=== PATIENT | female | born 1985 | race Caucasian/White ===

== ENCOUNTER 2017-06-12 10:05 | Day surgery (SDC) | payer BC, OTHER ==
[~2017-06-12] VITALS: Ht 157.5 cm; Wt 97.3 kg
[~2017-06-12 10:05] MED LIST: CEFAZOLIN 1,000 MG ONE; FENTANYL PF 100 MCG/2ML ONE; MIDAZOLAM 1 MG/ML, 2ML ONE; PROPOFOL 10 MG/ML, 20ML ONE; ROCURONIUM 10MG/ML,5ML ONE; SUCCINYLCHOLINE 20 MG/ML, 10ML ONE
[2017-06-12] MEDS ORDERED: BUPIVACAINE/PF 0.25% ONE (10:18)
[2017-06-12] MEDS ORDERED: THROMBIN 5,000 UNIT VIAL TP ONE (10:18)
[2017-06-12] MEDS ORDERED: EPINEPHRINE 1 MG/ML, 1ML ONE (10:19)
[2017-06-12] MEDS ORDERED: SILVER NITRATE STICK TP ONE (10:19)
[2017-06-12] MEDS ORDERED: LACTATED RINGERS 1,000 ML IV SCH ×3 (10:27→10:29)
[2017-06-12] MEDS ORDERED: LIDOCAINE 1%, 2ML ONE (10:27)
[2017-06-12 10:29] VITALS: BP 138/95
[2017-06-12] MEDS ORDERED: LIDOCAINE 1%, 2ML SQ PRN (10:30)
[2017-06-12] MEDS ORDERED: SCOPOLAMINE PATCH, 1MG PATCH.TD72 TD ONE ×2 (10:33→11:00)
[2017-06-12] MEDS ORDERED: ONDANSETRON 2MG/ML, 2ML ONE (10:47)
[2017-06-12] MEDS ORDERED: OMEP20TA62 PO (10:48)
[2017-06-12] MEDS ORDERED: HYDROmorphone 1 MG/ML, 1ML IV PRN (11:00)
[2017-06-12] MEDS ORDERED: MEPERIDINE/PF 25MG/0.5ML IVPush PRN (11:00)
[2017-06-12] MEDS ORDERED: PROMETHAZINE 25 MG/ML, 1ML IV PRN (11:00)
[2017-06-12] MEDS ORDERED: ACETAMINOPHEN 325 MG TABLET PO PRN (11:00)
[2017-06-12] MEDS ORDERED: ONDANSETRON 2MG/ML, 2ML IVPush PRN (11:00)
[2017-06-12] MEDS ORDERED: OXYcodone 5 MG/5 ML ORAL.SOL UDC PO PRN (11:00)
[2017-06-12 11:13] LABS: HEMATOCRIT 43.8 % (34.6-47.8); HEMOGLOBIN 14.8 g/dL (11.7-16.4); WHITE BLOOD COUNT 6.9 x10^3/uL (3.4-10)
[2017-06-12] MEDS ORDERED: GLYCOPYRROLATE 0.4 MG/2 ML, 2ML ONE (11:37)
[2017-06-12] MEDS ORDERED: NEOSTIGMINE 1 MG/ML, 10ML ONE (11:37)
[2017-06-12] MEDS ORDERED: EPINEPHRINE 1 MG/ML, 1ML INFIL ONE (11:45)
[2017-06-12] MEDS ORDERED: BUPIVACAINE/PF 0.25% INFIL ONE (11:45)
[2017-06-12] MEDS ORDERED: KETOROLAC 30 MG/1 ML ONE (11:54)
[2017-06-12] MEDS ORDERED: PROMETHAZINE 25 MG/ML, 1ML ONE (12:07)
[2017-06-12] MEDS ORDERED: OXYcodone 5 MG/5 ML ORAL.SOL UDC ONE (12:19)
[2017-06-12] MEDS ORDERED: ACETAMINOPHEN 650 MG/20.3 ML UDC ONE (12:19)
[2017-06-12] MEDS ORDERED: FENTANYL PF 100 MCG/2ML ONE (12:19)
[2017-06-12] MEDS ORDERED: ACETAMINOPHEN 325 MG TABLET ONE (12:20)
[2017-06-12] MEDS: FENTANYL PF 100 MCG/2ML IV PRN ×2 (12:25→12:41)
[2017-06-12 12:29] VITALS: BP 111/73
[2017-06-12] MEDS ORDERED: MEPERIDINE/PF 25MG/0.5ML ONE (12:46)
[2017-06-12] MEDS ORDERED: DEXAMETHASONE 4 MG/ML, 1ML ONE (16:26)
== END 2017-06-12 13:38 ==
LOC: OUT 10:05
PROVIDERS: ATTEND Obstetrics & Gynecology
DX: O00.102 Left tubal pregnancy without intrauterine pregnancy (principal); J45.909 Unspecified asthma, uncomplicated; G43.909 Migraine, unspecified, not intractable, without status migrainosus
CPT/HCPCS: 36415; 59151; 84702; 85025; 86850; 86900; 86923; 88302; J0171; J0330; J0690; J1100; J1885; J2175; J2250; J2405; J2550; J2704; J2710; J2790; J3010; J3490

== ENCOUNTER 2019-02-13 08:46 | Outpatient (CLI) | payer OTHER ==
[~2019-02-13] VITALS: Ht 157.5 cm; Wt 67.0 kg
[~2019-02-13 08:46] MED LIST changes: -CEFAZOLIN 1,000 MG ONE; -FENTANYL PF 100 MCG/2ML ONE; -MIDAZOLAM 1 MG/ML, 2ML ONE; +OMEP20TA62 PO; -PROPOFOL 10 MG/ML, 20ML ONE; -ROCURONIUM 10MG/ML,5ML ONE; -SUCCINYLCHOLINE 20 MG/ML, 10ML ONE
[2019-02-13] MEDS ORDERED: URSO300C27 PO (08:56)
[2019-02-13] MEDS ORDERED: PNV11TAB PO (08:56)
[2019-02-13 08:59] VITALS: BP 125/67
== END 2019-02-13 10:45 | disposition home or self-care (01) ==
LOC: LDOP 08:46
PROVIDERS: ATTEND Obstetrics & Gynecology
DX: O36.8130 Decreased fetal movements, third trimester, not applicable or unspecified (principal); Z3A.36 36 weeks gestation of pregnancy; Z88.0 Allergy status to penicillin
CPT/HCPCS: 59025; 76819; 99201; G0463

== ENCOUNTER 2019-02-17 05:52 | Inpatient (IN) | payer OTHER ==
[~2019-02-17] VITALS: Ht 157.5 cm; Wt 67.2 kg
[~2019-02-17 05:52] MED LIST changes: +PNV11TAB PO; +URSO300C27 PO
[2019-02-17] MEDS ORDERED: OXYTOCIN 30U/ 0.9% NaCL 500ML 500 ML IV ONE (05:53)
[2019-02-17] MEDS ORDERED: OXYTOCIN 30U/ 0.9% NaCL 500ML 500 ML IV PRN (05:53)
[2019-02-17] MEDS ORDERED: FENTANYL PF 100 MCG/2ML IVPush PRN (06:00)
[2019-02-17] MEDS ORDERED: FENTANYL PF 100 MCG/2ML IV PRN (06:00)
[2019-02-17] MEDS ORDERED: ONDANSETRON 2MG/ML, 2ML IVPush PRN (06:00)
[2019-02-17 06:03] VITALS: BP 131/82
[2019-02-17 06:23] LABS: BASOPHILS # (AUTO) 0.02 x10^3/uL (0-0.1); BASOPHILS % (AUTO) 0 % (0-1); EOSINOPHILS # (AUTO) 0.05 x10^3/uL (0-0.4); EOSINOPHILS % (AUTO) 1 % (1-7); LYMPHOCYTES # (AUTO) 1.54 x10^3/uL (1-3.4); LYMPHOCYTES % (AUTO) 16 % (22-44); MD NO; MEAN CORPUSCULAR HEMOGLOBIN 25.8 pg (27.0-34.8); MEAN CORPUSCULAR HGB CONC 32.7 g/dL (32.4-35.8); MEAN CORPUSCULAR VOLUME 79.1 fL (80-100); MEAN PLATELET VOLUME 9.5 fL (7.4-10.4); MONOCYTES # (AUTO) 0.83 x10^3/uL (0.2-0.8); MONOCYTES % (AUTO) 9 % (2-9); NEUTROPHILS # (AUTO) 7.07 x10^3/uL (1.8-6.8); NEUTROPHILS % (AUTO) 74 % (42-75); PLATELET COUNT 214 x10^3/uL (130-400); RED CELL DISTRIBUTION WIDTH 15.2 % (9.6-15.2)
[2019-02-17] MEDS: LACTATED RINGERS 1,000 ML IV SCH ×3 (06:24→12:32)
[2019-02-17] MEDS ORDERED: MISOPROSTOL 200 MCG TABLET ONE ×2 (06:28→15:34)
[2019-02-17] MEDS ORDERED: OXYTOCIN 30U/ 0.9% NaCL 500ML 500 ML ONE ×2 (06:28→15:51)
[2019-02-17] MEDS ORDERED: LIDOCAINE 1%, 20ML ONE (06:28)
[2019-02-17 06:34] LABS: INTERNATIONAL NORMALIZED RATIO 0.88 (0.93-1.1); PROTHROMBIN TIME 9.3 Seconds (9.6-11.5)
[2019-02-17] MEDS ORDERED: FENTANYL/BUPIV./NS/PF 250 ML EPIDCONT SCH (06:52)
[2019-02-17 09:13] LABS: ALANINE AMINOTRANSFERASE 17 U/L (12-78); ALBUMIN 2.6 g/dL (3.4-5.0); ANION GAP 11 mmol/L (5-15); CALCIUM 9.1 mg/dL (8.5-10.1); CHLORIDE 107 mmol/L (98-107); CREATININE 0.72 mg/dL (0.55-1.02)
[2019-02-17 09:15] LABS: ALKALINE PHOSPHATASE 248 U/L (45-117); BILIRUBIN,TOTAL 0.4 mg/dL (0.2-1.0); TOTAL PROTEIN 6.1 g/dL (6.4-8.2)
[2019-02-17] MEDS ORDERED: FENTANYL PF 100 MCG/2ML ONE (11:23)
[2019-02-17] MEDS ORDERED: BUPIVACAINE 0.25% ONE ×2 (11:23→11:30)
[2019-02-17] MEDS ORDERED: LIDOCAINE/PF 1.5-EPI 1:200K, 30 ML ONE (11:30)
[2019-02-17] MEDS ORDERED: FENTANYL/BUPIV./NS/PF 250 ML EPIDCONT ONE (11:30)
[2019-02-17] MEDS ORDERED: ONDANSETRON 2MG/ML, 2ML ONE ×2 (12:03→17:51)
[2019-02-17] MEDS ORDERED: MISOPROSTOL 200 MCG TABLET PR PRN ×2 (16:30→17:00)
[2019-02-17] MEDS ORDERED: CALCIUM CARBONATE 500 MG TAB.CHEW PO PRN ×2 (16:30→17:00)
[2019-02-17] MEDS ORDERED: DOCUSATE 100 MG CAPSULE PO PRN ×2 (16:30→17:00)
[2019-02-17] MEDS ORDERED: ONDANSETRON 2MG/ML, 2ML IV PRN ×3 (16:30→18:00)
[2019-02-17] MEDS ORDERED: BISACODYL 10 MG SUPP PR PRN ×2 (16:30→17:00)
[2019-02-17] MEDS ORDERED: ACETAMINOPHEN 325 MG TABLET PO PRN ×4 (16:30→17:00)
[2019-02-17] MEDS ORDERED: HYDROcodone/APAP 5/325 TABLET PO PRN ×2 (16:30)
[2019-02-17] MEDS ORDERED: IBUPROFEN 600 MG TABLET ONE (16:47)
[2019-02-17] MEDS ORDERED: HYDROcodone/APAP 5/325 TABLET ONE (16:47)
[2019-02-17] MEDS: IBUPROFEN 600 MG TABLET PO PRN ×2 (16:50→23:00)
[2019-02-17] MEDS: OXYTOCIN 30U/ 0.9% NaCL 500ML 500 ML IV SCH ×5 (16:53→23:51)
[2019-02-17] MEDS ORDERED: METHYLERGONOVINE 0.2 MG/ML IM ONE (16:58)
[2019-02-17] MEDS ORDERED: MAGNESIUM HYDROXIDE 8%, 30ML UDC PO PRN (17:00)
[2019-02-17] MEDS ORDERED: METOCLOPRAMIDE 5 MG/ML, 2ML IV PRN (17:00)
[2019-02-17] MEDS ORDERED: IBUPROFEN 600 MG TABLET PO PRN (17:00)
[2019-02-17] MEDS ORDERED: CARBOPROST TROMETHAMINE 250 MCG/ML, 1ML IM PRN (17:00)
[2019-02-17] MEDS ORDERED: OXYcodone/APAP 5/325MG TABLET PO PRN (17:00)
[2019-02-17] MEDS ORDERED: GLYCERIN ADULT SUPP PR PRN (17:00)
[2019-02-17] MEDS ORDERED: MEASLES,MUMPS&RUBELLA VACC/PF 0.5 ML SQ-VACC PRN (17:00)
[2019-02-17] MEDS ORDERED: METHYLERGONOVINE 0.2 MG/ML IM PRN (17:00)
[2019-02-17] MEDS ORDERED: RHOGAM FROM BLOOD BANK 1 NOTE EA IM/IV ONE (17:00)
[2019-02-17] MEDS ORDERED: DIPH,PERTUSS(ACELL),TET VAC/PF NC IM-VACC PRN (17:00)
[2019-02-17 18:30] VITALS: BP 118/78
[2019-02-17 19:30] VITALS: BP 115/81
[2019-02-17 23:17] VITALS: BP 110/76
[2019-02-18] MEDS: OXYcodone/APAP 5/325MG TABLET PO PRN ×3 (00:28→16:43)
[2019-02-18 00:58] LABS: BASOPHILS # (AUTO) 0.02 x10^3/uL (0-0.1); BASOPHILS % (AUTO) 0 % (0-1); EOSINOPHILS # (AUTO) 0.03 x10^3/uL (0-0.4); EOSINOPHILS % (AUTO) 0 % (1-7); LYMPHOCYTES # (AUTO) 1.52 x10^3/uL (1-3.4); LYMPHOCYTES % (AUTO) 12 % (22-44); MD NO; MEAN CORPUSCULAR HEMOGLOBIN 26.3 pg (27.0-34.8); MEAN CORPUSCULAR HGB CONC 32.7 g/dL (32.4-35.8); MEAN CORPUSCULAR VOLUME 80.6 fL (80-100); MEAN PLATELET VOLUME 9.8 fL (7.4-10.4); MONOCYTES # (AUTO) 0.89 x10^3/uL (0.2-0.8); MONOCYTES % (AUTO) 7 % (2-9); NEUTROPHILS # (AUTO) 10.03 x10^3/uL (1.8-6.8); NEUTROPHILS % (AUTO) 80 % (42-75); PLATELET COUNT 182 x10^3/uL (130-400); RED BLOOD COUNT 3.41 x10^6/uL (3.82-5.3)
[2019-02-18] MEDS: OXYTOCIN 30U/ 0.9% NaCL 500ML 500 ML IV SCH ×5 (02:18→04:21)
[2019-02-18 04:57] VITALS: BP 108/68
[2019-02-18] MEDS: IBUPROFEN 600 MG TABLET PO PRN ×2 (06:12→12:19)
[2019-02-18 07:10] VITALS: BP 106/69
[2019-02-18] MEDS ORDERED: PRENATAL VIT/IRON/FA 1 EACH TABLET PO SCH ×2 (09:00)
[2019-02-18] MEDS ORDERED: IBUP-1222 PO (14:46)
[2019-02-18] MEDS ORDERED: OXYC-302 PO (14:47)
== END 2019-02-18 16:58 | disposition home or self-care (01) | DRG 805 ==
LOC: LDIP 05:52 → 2NW 18:19
PROVIDERS: ADMIT Obstetrics & Gynecology; ATTEND Obstetrics & Gynecology
PROC: 10E0XZZ Delivery of Products of Conception, External Approach (ICD-10-PCS; principal; 2019-02-17)
PROC: 0HQ9XZZ Repair Perineum Skin, External Approach (ICD-10-PCS; 2019-02-17)
PROC: 30233S1 Transfusion of Nonautologous Globulin into Peripheral Vein, Percutaneous Approach (ICD-10-PCS; 2019-02-17)
PROC: 3E0234Z Introduction of Serum, Toxoid and Vaccine into Muscle, Percutaneous Approach (ICD-10-PCS; 2019-02-17)
PROC: 3E0R3BZ Introduction of Anesthetic Agent into Spinal Canal, Percutaneous Approach (ICD-10-PCS; 2019-02-17)
PROC: 00HU33Z Insertion of Infusion Device into Spinal Canal, Percutaneous Approach (ICD-10-PCS; 2019-02-17)
DX: O26.62 Liver and biliary tract disorders in childbirth (principal); K83.1 Obstruction of bile duct; Z37.0 Single live birth; O72.1 Other immediate postpartum hemorrhage; O99.52 Diseases of the respiratory system complicating childbirth; J45.909 Unspecified asthma, uncomplicated; O26.893 Other specified pregnancy related conditions, third trimester; Z88.0 Allergy status to penicillin; O70.0 First degree perineal laceration during delivery; Z3A.37 37 weeks gestation of pregnancy; O90.81 Anemia of the puerperium; G43.909 Migraine, unspecified, not intractable, without status migrainosus; Z67.40 Type O blood, Rh positive
CPT/HCPCS: 36415; J2790; 80053; 85025; 85461; 85610; 85730; 86850; 86900; G0378; J2405; J3490; J2210; J2590; J3010; J7120